=== PATIENT | male | born 1970 | race Caucasian/White ===

== ENCOUNTER 2018-12-05 15:15 | Emergency (ER) | payer OTHER ==
[~2018-12-05] VITALS: Ht 170.2 cm; Wt 124.1 kg
[~2018-12-05 15:15] MED LIST: ALBU8.5H8 INH; ATOR20TA38 PO; CIPR500T4 PO; ESOM40CA PO; METO-448 PO; METR500T PO; NICO-546 TRANSDERM
[2018-12-05 15:26] VITALS: Ht 170.2 cm; Wt 124.1 kg
[2018-12-05] MEDS ORDERED: IBUPROFEN 800 MG TAB PO ONE (17:00)
[2018-12-05] MEDS ORDERED: morphine 4 MG/ML VIAL IV STA (19:14)
[2018-12-05] MEDS ORDERED: ONDANSETRON 4 MG INJ IV STA (19:14)
[2018-12-05] MEDS ORDERED: AMPICILLIN/SULB 3 GM/NS (PMX) 100 ML IVPB ONE (19:30)
[2018-12-05] MEDS ORDERED: BUPIVACAINE 0.5%/EPI (SDV) 30 ML INJ ONE (19:45)
--- NOTE | 2018-12-05 19:48 | PREAC ---
Date/Time of Note Date/Time of Note DATE: 12/05/18 TIME: 19:47 Anesthesia Eval and Record Evaluation Time Pre-Procedure Interview DATE: 12/05/18 TIME: 19:47 Age 48 Sex male NPO: 8 hrs Preoperative diagnosis APPENDICITIS Planned procedure LAPAROSCOPIC APPENDECTOMY Past Medical History Past Medical History: Includes Cardio: Dyslipidemia GI: Morbid obesity Surgery & Anesthesia Issues No known issue Meds Anticoagulation: No Beta Arya within 24 hr: No Reason Beta Arya not given: Pt. not on B-Arya Current Medications Ampicillin Sodium/ Sulbactam Sodium 100 ml @ 100 mls/hr ONCE ONCE IVPB Last administered on 12/05/18at 19:44; Admin Dose 100 MLS/HR; Start 12/05/18 at 19:30; Stop 12/05/18 at 20:29 Meds reviewed: Yes Allergies Coded Allergies: No Known Allergy (Unverified , 12/05/18) Allergies Reviewed: Yes Labs/Studies Labs Reviewed: Reviewed by anesthesiologist Result Diagram: 12/05/18190612/05/181906 Laboratory Tests 12/05/18 19:07 test: N/A Pre-procedure Exam Last vitals Vital Signs Date Temp Pulse Resp B/P (MAP) Pulse Ox O2 O2 Flow FiO2 Time Delivery Rate 12/05/18 98.9 83 18 148/91 100 Room Air 19:24 (110) Airway: Adequate mouth opening, Adequate thyromental dist Mallampati: Mallampati II Teeth: Normal Lung: Normal Heart: Normal ASA Physical Status ASA physical status: 2 Emergency: E Planned Anesthetic General/MAC: ETT Planned Pain Management Parenteral pain med Pre-operative Attestations Prior to commencing anesthesia and surgery, the patient was re-evaluated, there was verification of: *The patient's identity *The results of appropriate recent lab work and preoperative vital signs *The above evaluation not changing prior to induction *Anesthetic plan, risk benefits, alternative and complications discussed with patient/family; questions answered; patient/family understands, accepts and wishes to proceed. MORIS ANGEL Dec 05, 2018 19:48
[2018-12-05] MEDS ORDERED: PROPOFOL 20 ML ONE (19:50)
[2018-12-05] MEDS ORDERED: LIDOCAINE 2% (SDV) 5 ML INJ ONE (19:52)
--- NOTE | 2018-12-05 21:56 | ERD ---
ER Documentation Chief Complaint Chief Complaint sent by pcp - abdominal pain/distention possible umbulical hernia HPI Patient is a 48-year-old male with high cholesterol who presents for hernia evaluation. The patient was sent by Dr. Shukla to evaluate for possible incarcerated hernia. The patient says that he has abdominal pain which is better with laying down. He feels the pain in his lower abdomen and around his umbilical area. He said the pain started yesterday. He tried ibuprofen. He did have a bowel movement today with no blood. Upon review of old medical records this is the patient's first visit to the emergency department. ROS All systems reviewed and are negative except as per history of present illness. Medications Home Meds Reported Medications Esomeprazole Mag Trihydrate (Nexium) 40 Mg Capsule.dr, 40 MG PO DAILY, #30 CAP 12/05/18 Atorvastatin Calcium* (Atorvastatin Calcium*) 20 Mg Tablet, 20 MG PO QHS, #30 TAB 12/05/18 Allergies Allergies: Coded Allergies: No Known Allergy (Unverified , 12/05/18) PMhx/Soc History of Surgery: Yes (R inguinal and L knee sx) Anesthesia Reaction: No Hx Cardiac Disorders: Yes (HDL) Hx Psychiatric Problems: No Hx Miscellaneous Medical Probl: No Hx Alcohol Use: No Hx Substance Use: No Hx Tobacco Use: No Smoking Status: Never smoker FmHx Family History: diabetes Physical Exam Vitals Vital Signs Date Temp Pulse Resp B/P (MAP) Pulse Ox O2 O2 Flow FiO2 Time Delivery Rate 12/05/18 98.9 83 18 148/91 100 Room Air 19:24 (110) 12/05/18 98.3 93 20 121/68 99 15:26 (85) Physical Exam Const: No acute distress Head: Atraumatic Eyes: Normal Conjunctiva ENT: Normal External Ears, Nose and Mouth. Neck: Full range of motion. No meningismus. Resp: Clear to auscultation bilaterally Cardio: Regular rate and rhythm, no murmurs Abd: Soft, diffuse crampy abdominal pain with small umbilical hernia which is easily reducible without signs of incarceration Skin: No petechiae or rashes Back: No midline or flank tenderness Ext: No cyanosis, or edema Neur: Awake and alert Psych: Normal Mood and Affect Result Diagram: 8/5/19 1907 8/5/19 1907 Results 24 hrs Laboratory Tests Test 12/05/18 19:07 White Blood Count 11.7 10^3/ul Red Blood Count 4.49 10^6/ul Hemoglobin 14.1 g/dl Hematocrit 41.6 % Mean Corpuscular Volume 92.7 fl Mean Corpuscular Hemoglobin 31.4 pg Mean Corpuscular Hemoglobin Concent 33.9 g/dl Red Cell Distribution Width 12.1 % Platelet Count 184 10^3/UL Mean Platelet Volume 10.1 fl Immature Granulocytes % 0.500 % Neutrophils % 61.5 % Lymphocytes % 25.9 % Monocytes % 9.6 % Eosinophils % 1.9 % Basophils % 0.6 % Nucleated Red Blood Cells % 0.0 /100WBC Immature Granulocytes # 0.060 10^3/ul Neutrophils # 7.2 10^3/ul Lymphocytes # 3.0 10^3/ul Monocytes # 1.1 10^3/ul Eosinophils # 0.2 10^3/ul Basophils # 0.1 10^3/ul Nucleated Red Blood Cells # 0.0 10^3/ul Prothrombin Time 13.3 Sec Prothrombin Time Ratio 1.0 INR International Normalized Ratio 1.00 Activated Partial Thromboplast Time 29.0 Sec Urine Color ИРИНА Urine Clarity SLIGHTLY CLOUDY Urine pH 5.0 Urine Specific [place] 1.030 Urine Ketones NEGATIVE mg/dL Urine Nitrite NEGATIVE mg/dL Urine Bilirubin 1+ mg/dL Urine Urobilinogen 1+ mg/dL Urine Leukocyte Esterase NEGATIVE Syeda/ul Urine Microscopic RBC 0 /HPF Urine Microscopic WBC 1 /HPF Urine Mucus MANY /HPF Urine Hemoglobin NEGATIVE mg/dL Urine Glucose NEGATIVE mg/dL Urine Total Protein 1+ mg/dl Sodium Level 138 mmol/L Potassium Level 3.8 mmol/L Chloride Level 104 mmol/L Carbon Dioxide Level 24 mmol/L Anion Gap 10 Blood Urea Nitrogen 18 mg/dl Creatinine 1.02 mg/dl Est Glomerular Filtrat Rate mL/min > 60 mL/min Glucose Level 99 mg/dl Calcium Level 9.0 mg/dl Total Bilirubin 0.8 mg/dl Direct Bilirubin 0.00 mg/dl Indirect Bilirubin 0.8 mg/dl Aspartate Amino Transf (AST/SGOT) 27 IU/L Alanine Aminotransferase (ALT/SGPT) 38 IU/L Alkaline Phosphatase 58 IU/L Troponin I < 0.012 ng/ml Total Protein 7.2 g/dl Albumin 4.5 g/dl Globulin 2.70 g/dl Albumin/Globulin Ratio 1.66 Lipase 100 U/L Current Medications Medications Dose Sig/Teresa Start Time Status Last (Trade) Ordered Route PRN Stop Time Admin Dose Reason Admin Ibuprofen 800 mg ONCE ONCE 12/05/18 DC 12/05/18 (Motrin) PO 17:00 12/05/18 16:52 17:01 Morphine 4 mg ONCE STAT 12/05/18 DC 12/05/18 Sulfate IV 19:14 12/05/18 19:29 (morphine) 19:16 Ondansetron 4 mg ONCE STAT 12/05/18 DC 12/05/18 HCl (Zofran IV 19:14 12/05/18 19:29 Inj) 19:16 Ampicillin 100 ml @ ONCE ONCE 12/05/18 DC 12/05/18 Sodium/ 100 mls/hr IVPB 19:30 12/05/18 19:44 Sulbactam 20:29 Sodium Bupivacaine 30 ml STK-MED 12/05/18 DC HCl/ ONCE .ROUTE 19:45 12/05/18 Epinephrine 19:46 Bitart (Marcaine 0.5%/ Epi (Sdv)) Ondansetron 4 mg BRIDGE ORDER 12/05/18 HCl (Zofran PRN IV 22:00 12/06/18 Inj) NAUSEA/VOMITI 21:59 NG 650 mg ER BRIDGE 12/05/18 Acetaminophen PRN PO 22:00 12/06/18 (Tylenol .MILD PAIN 21:59 Tab) 1-3 OR TEMP Procedures/MDM CT abdomen and pelvis shows appendicolith with surrounding inflammation but no appendix seen per radiology. Chest x-ray read by radiology. EKG read by me: Rate/Rhythm: Regular rate and rhythm at a normal rate Intervals: Normal Impression: No evidence of ischemia or arrhythmia Smoking Cessation Therapy: Pt. was lectured for greater than 3 minutes on the health risks of continued smoking and the benefits of cessation. Patient is a 48-year-old male who presents with abdominal pain. CT scan showed inflammation around the appendiceal stump as the patient said that he had a previous appendix removal when he was 10 years old. The patient has an elevated white blood cell count of 11.7. He was given Unasyn IV. I spoke with Dr. Dominguez the surgeon on-call who said there would not be a need for surgery since he had his appendix removed but he did recommend admission for IV antibiotics. I spoke to Dr. Morgan for admission to a medical surgical inpatient bed as the patient has [employer] insurance. Departure Diagnosis: Primary Impression: Appendix disease Additional Impression: Abdominal pain Abdominal location: unspecified location Qualified Codes: R10.9 - Unspecified abdominal pain Condition: PUJA Perkins MD Dec 05, 2018 21:56
[2018-12-05] MEDS ORDERED: ONDANSETRON 4 MG INJ IV PRN (22:00)
[2018-12-05] MEDS ORDERED: HYDROmorphONE 2 MG/ML SYG IV STA (22:32)
[2018-12-06] MEDS ORDERED: ONDANSETRON 4 MG INJ IV PRN (01:30)
[2018-12-06] MEDS ORDERED: morphine 4 MG/ML VIAL IV PRN (01:30)
[2018-12-06] MEDS ORDERED: ACETAMINOPHEN 325 MG TAB PO PRN (01:30)
[2018-12-06] MEDS ORDERED: SOD CHLORIDE 0.9% 1,000 ML IV SCH ×2 (01:30→02:00)
[2018-12-06] MEDS: PIPER-TAZO 3.375 GM IV (PMX) 100 ML IVPB SCH ×2 (02:13→09:30)
--- NOTE | 2018-12-06 02:39 | HP ---
DATE OF ADMISSION: 12/05/2018 CHIEF COMPLAINT: Abdominal pain. HISTORY OF PRESENT ILLNESS: The patient presents to the emergency room at [facility] with a bdominal pain which he states is worse in the periumbilical and suprapubic regions. This is not asso ciated with any nausea, vomiting, diarrhea, any fevers or chills. PAST MEDICAL HISTORY: Gastroesophageal reflux disease and hyperlipidemia. OUTPATIENT MEDICATIONS: 1. Nexium 2. Lipitor. ALLERGIES: NO KNOWN DRUG ALLERGIES. SOCIAL HISTORY: The patient lives at home in [place] with his and children. 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 Smokes a pack per day. Rare alcohol. Denies illicit drug use. FAMILY HISTORY: Noncontributory. REVIEW OF SYSTEMS: Five systems reviewed and found not to be revealing. PHYSICAL EXAMINATION: VITAL SIGNS: Blood pressure 114/74, pulse rate 66, respirations 20, temperature 98.6. GENERAL: Pleasant man in no acute distress. Alert and oriented x3. HEENT: Normocephalic, atraumatic without evident scleral icterus, perioral cyanosis. Mucous membran es are moist. NECK: Soft and supple without masses. No evidence of jugular venous distention or carotid bruits. CHEST: Clear to auscultation and percussion bilaterally. HEART: Regular rate and rhythm, S1-S2, no added sounds. ABDOMEN: Soft, tender in the periumbilical region. No palpable hepatosplenomegaly. EXTREMITIES: Without clubbing, cyanosis or edema. SKIN: Without rashes. NEUROLOGIC: Grossly intact. LABORATORY STUDIES: Reveal hemoglobin of 14.1 g/dL, white count 11,700, platelets of 184,000. INR i s 1.0. Sodium 138, potassium 3.8, chloride 104, bicarbonate 24, BUN 18, creatinine 1.02, glucose 99. Liver function tests within normal limits. UA is negative for signs of infection. IMAGING: CT scan of the abdomen and pelvis reveals a pericecal inflammatory mass surrounding any alfred endicolith with surrounding infiltration, suspicious for appendicitis; however, distinct appendix is not seen. ASSESSMENT AND PLAN: Probable repeat episode of appendicitis following appendectomy. We will plan t o treat medically at this time. Await surgical evaluation. Dictated By: MATTIE RM MD RER/NTS Conf#: [id number] [facility]#: [id number]
[2018-12-06] MEDS ORDERED: PANTOPRAZOLE (EC) 40 MG TAB PO SCH (06:00)
[2018-12-06] MEDS: ACETAMINOPHEN 325 MG TAB PO PRN ×2 (08:23→10:56)
--- NOTE | 2018-12-06 09:52 | PDOCDIS ---
Discharge Instructions CONDITION [id number] Patient Condition: [id number] Good HOME CARE INSTRUCTIONS: [id number] Diet Instructions: [id number] FOLLOW UP/APPOINTMENTS Follow-up Plan pcp 1 week LEN ESTRADA MD Dec 06, 2018 09:52
[2018-12-06 10:57] VITALS: BP 117/79; PULSE 65; RESP 18
[2018-12-06] MEDS ORDERED: IBUPROFEN 600 MG TAB PO ONE (11:00)
--- NOTE | 2018-12-06 19:11 | DS ---
DATE OF ADMISSION: 12/05/2018 DATE OF DISCHARGE: 12/06/2018 DISCHARGE DIAGNOSES: 1. A 48-year-old male with acute colitis. 2. Status post appendectomy at the age of 10. 3. Gastroesophageal reflux disease. 4. Hyperlipidemia. HOSPITAL COURSE: A 48-year-old Frisian male presented to emergency room with complaint of right low er quadrant and periumbilical as well as suprapubic tenderness to palpation. The patient denied any nausea or vomiting. No fevers or chills. No hematemesis. No bright red blood per rectum or melena. CAT scan of the abdomen and pelvis showed pericecal probable inflammatory mass surrounding appendicol ith with surrounding infiltration, most suspicious for appendicitis; however, the appendix could not be identified. The case was discussed with Dr. Dominguez. There was no need for surgical intervention. The patient remained stable during the hospitalization. He was discharged to home in a stable condi tion. I prescribed 10 days of Cipro and Flagyl. The patient will follow up with his PCP. He will a lso be referred to gastroenterology for colonoscopy following treatment of his colitis. Dictated By: LEN MEYER/YOSEF Conf#: [id number] DID#: [id number]
[2018-12-06] MEDS ORDERED: ATORVASTATIN 20 MG TAB PO SCH (21:00)
== END 2018-12-06 10:58 | disposition home or self-care (01) ==
LOC: FTE 15:15 → E/R 12-06 10:58
DX: K38.9 Disease of appendix, unspecified (principal)
CPT/HCPCS: 36415; 71045; 74176; 80053; 81001; 83690; 84484; 85025; 85610; 85730; 93005; 96374; 96375; 96376; J0295; J1170; J2270; J2405; J2543; J7030; Z7502; Z7610; J3010

== ENCOUNTER 2018-12-08 13:58 | Inpatient (IN) | payer OTHER ==
[~2018-12-08] VITALS: Ht 170.2 cm; Wt 125.0 kg
[2018-12-08] MEDS ORDERED: HYDROmorphONE 2 MG/ML SYG IV STA (14:16)
[2018-12-08] MEDS ORDERED: SODIUM CHLORIDE 0.9% 1L BAG IV* STA (14:16)
[2018-12-08] MEDS ORDERED: ONDANSETRON 4 MG INJ IV STA (14:16)
[2018-12-08] MEDS ORDERED: AMPICILLIN/SULB 3 GM/NS (PMX) 100 ML IVPB ONE (14:30)
[2018-12-08] MEDS ORDERED: ACETAMINOPHEN 325 MG TAB PO PRN (16:00)
[2018-12-08] MEDS ORDERED: ONDANSETRON 4 MG INJ IV PRN (16:00)
[2018-12-08] MEDS ORDERED: morphine 2 MG INJ IV PRN (18:00)
[2018-12-08] MEDS: DEXTROSE 5%-0.45% NACL 1,000 ML IV SCH (18:41)
--- NOTE | 2018-12-08 18:45 | ERD ---
ER Documentation Chief Complaint Chief Complaint SEEN HERE 12/05 AP NOT RESOLVED HPI Patient is a 48-year-old male with no medical problems who presents with abdominal pain. He was seen by his primary doctor in the office today who sent him to the emergency department for admission and surgery. His primary doctor spoke with Dr. Christensen who plans to operate. The patient has right lower quadrant abdominal pain and fevers. He was recently admitted for the same and had an appendiceal stump infection. He was discharged with Cipro and Flagyl which she is taking. ROS All systems reviewed and are negative except as per history of present illness. Medications Home Meds Active Scripts Metronidazole* (Flagyl*) 500 Mg Tablet, 500 MG PO Q8 for 10 Days, TAB Prov:LEN ROCHA MD 12/06/18 Ciprofloxacin Hcl* (Ciprofloxacin Hcl*) 500 Mg Tablet, 500 MG PO BID for 10 Days, #20 TAB Prov:LEN ROCHA MD 12/06/18 Reported Medications Esomeprazole Mag Trihydrate (Nexium) 40 Mg Capsule.dr, 40 MG PO DAILY, #30 CAP 12/05/18 Atorvastatin Calcium* (Atorvastatin Calcium*) 20 Mg Tablet, 20 MG PO QHS, #30 TAB 12/05/18 Allergies Allergies: Coded Allergies: No Known Allergy (Unverified , 12/08/18) PMhx/Soc History of Surgery: Yes (R inguinal and L knee sx, appy) Anesthesia Reaction: No Hx Cardiac Disorders: Yes (HDL) Hx Psychiatric Problems: No Hx Miscellaneous Medical Probl: No Hx Alcohol Use: No Hx Substance Use: No Hx Tobacco Use: No Smoking Status: Never smoker FmHx Family History: diabetes Physical Exam Vitals Vital Signs Date Temp Pulse Resp B/P (MAP) Pulse Ox O2 O2 Flow FiO2 Time Delivery Rate 12/08/18 98.0 82 18 115/75 99 14:10 (88) Physical Exam Const: No acute distress Head: Atraumatic Eyes: Normal Conjunctiva ENT: Normal External Ears, Nose and Mouth. Neck: Full range of motion. No meningismus. Resp: Clear to auscultation bilaterally Cardio: Regular rate and rhythm, no murmurs Abd: Right lower quadrant tenderness palpation with guarding Skin: No petechiae or rashes Back: No midline or flank tenderness Ext: No cyanosis, or edema Neur: Awake and alert Psych: Normal Mood and Affect Result Diagram: 12/08/18 1425 12/08/18 1425 Results 24 hrs Laboratory Tests Test 12/08/18 14:25 12/08/18 14:26 12/08/18 14:29 White Blood Count 7.7 10^3/ul Red Blood Count 4.32 10^6/ul Hemoglobin 13.6 g/dl Hematocrit 40.7 % Mean Corpuscular Volume 94.2 fl Mean Corpuscular Hemoglobin 31.5 pg Mean Corpuscular 33.4 g/dl Hemoglobin Concent Red Cell Distribution Width 12.0 % Platelet Count 191 10^3/UL Mean Platelet Volume 10.1 fl Immature Granulocytes % 0.800 % Neutrophils % 53.8 % Lymphocytes % 30.3 % Monocytes % 11.1 % Eosinophils % 3.5 % Basophils % 0.5 % Nucleated Red Blood Cells % 0.0 /100WBC Immature Granulocytes # 0.060 10^3/ul Neutrophils # 4.2 10^3/ul Lymphocytes # 2.3 10^3/ul Monocytes # 0.9 10^3/ul Eosinophils # 0.3 10^3/ul Basophils # 0.0 10^3/ul Nucleated Red Blood Cells # 0.0 10^3/ul Prothrombin Time 14.1 Sec Prothrombin Time Ratio 1.1 INR International 1.08 Normalized Ratio Activated Partial Thromboplast 30.3 Sec Time Sodium Level 139 mmol/L Potassium Level 3.9 mmol/L Chloride Level 105 mmol/L Carbon Dioxide Level 27 mmol/L Anion Gap 7 Blood Urea Nitrogen 15 mg/dl Creatinine 1.01 mg/dl Est Glomerular Filtrat > 60 mL/min Rate mL/min Glucose Level 111 mg/dl Calcium Level 9.5 mg/dl Total Bilirubin 0.7 mg/dl Direct Bilirubin 0.00 mg/dl Indirect Bilirubin 0.7 mg/dl Aspartate Amino Transf (AST/SGOT) 28 IU/L Alanine 41 IU/L Aminotransferase (ALT/SGPT) Alkaline Phosphatase 54 IU/L Troponin I < 0.012 ng/ml Total Protein 7.5 g/dl Albumin 4.4 g/dl Globulin 3.10 g/dl Albumin/Globulin Ratio 1.41 Lipase 102 U/L POC Venous Lactate 0.8 mmol/L Urine Color YELLOW Urine Clarity CLEAR Urine pH 6.0 Urine Specific [place] 1.021 Urine Ketones NEGATIVE mg/dL Urine Nitrite NEGATIVE mg/dL Urine Bilirubin NEGATIVE mg/dL Urine Urobilinogen NEGATIVE mg/dL Urine Leukocyte Esterase 1+ Syeda/ul Urine Microscopic RBC 1 /HPF Urine Microscopic WBC 0 /HPF Urine Mucus FEW /HPF Urine Hemoglobin NEGATIVE mg/dL Urine Glucose NEGATIVE mg/dL Urine Total Protein NEGATIVE mg/dl Current Medications Medications Dose Sig/Teresa Start Time Status Last (Trade) Ordered Route PRN Stop Time Admin Dose Reason Admin Sodium 2,700 ml BOLUS OVER 2 12/08/18 DC 12/08/18 Chloride HOURS STAT 14:16 12/08/18 14:40 (NS) IV* 14:18 1 mg ONCE STAT 12/08/18 DC 12/08/18 Hydromorphone IV 14:16 12/08/18 14:39 HCl 14:18 (Dilaudid) Ondansetron 4 mg ONCE STAT 12/08/18 DC 12/08/18 HCl (Zofran IV 14:16 12/08/18 14:39 Inj) 14:18 Ampicillin 100 ml @ ONCE ONCE 12/08/18 DC 12/08/18 Sodium/ 100 mls/hr IVPB 14:30 12/08/18 14:50 Sulbactam 15:29 Sodium Procedures/MDM EKG read by me: Rate/Rhythm: Regular rate and rhythm Intervals: Normal Impression: No evidence of ischemia or arrhythmia Chest x-ray read by radiology. Patient is a 48-year-old male presents with acute right lower quadrant pain with colitis from an infected appendiceal stump. I spoke with Dr. Christensen who plans to operate tomorrow. The patient has [employer] insurance and I spoke with Dr. Rocha for admission to a medical surgical bed. Preoperative studies were done and the patient was given Unasyn IV. I doubt sepsis at this time. Departure Diagnosis: Primary Impression: Colitis Additional Impression: Abdominal pain Abdominal location: right lower quadrant Qualified Codes: R10.31 - Right lower quadrant pain Condition: PUJA Perkins MD Dec 08, 2018 18:45
[2018-12-08 18:48] VITALS: Ht 170.2 cm; Wt 125.0 kg
[2018-12-08 18:54] VITALS: BP 120/72; PULSE 73; RESP 18
--- NOTE | 2018-12-08 20:39 | HP ---
DATE OF ADMISSION: 12/08/2018 CHIEF COMPLAINT: Persistent right lower abdominal pain. HISTORY OF PRESENT ILLNESS: A 48-year-old male status post appendectomy at the age of 10, returns to emergency room after he presented to his primary care physician with complaint of persistent right lo wer quadrant abdominal pain. The patient was admitted 2 days prior when he initially presented with right lower quadrant abdominal pain. At that time, case was discussed with Dr. Dominguez. He did not re commend any surgical intervention and requested treatment for colitis. The patient was discharged on Cipro and Flagyl. He continued to have right lower quadrant abdominal pain. White blood cell count was 7.7. Basic metabolic panel was within normal limits. Serum lactate was 0.8. PAST MEDICAL HISTORY: 1. Hyperlipidemia. 2. Gastroesophageal reflux disease. 3. History of tobacco use. MEDICATIONS PRIOR TO ADMISSION: 1. Cipro. 2. Flagyl. 3. Nexium. 4. Lipitor. PAST SURGICAL HISTORY: Status post appendectomy at the age of 10, status post right inguinal hernia r epair, status post left knee surgery. PHYSICAL EXAMINATION: GENERAL: Well-developed, well-nourished male who is in no apparent distress. VITAL SIGNS: Stable. He is afebrile. HEENT: Extraocular muscles are intact. Pupils are equal and reactive to light bilaterally. Sclerae are anicteric. Oropharynx is clear and moist. NECK: Supple. No JVD, no carotid bruits. LUNGS: Slight rhonchi. CARDIAC: Regular rate and rhythm. No murmurs, rubs or gallops. ABDOMEN: Soft. Right lower quadrant tenderness to palpation with mild guarding. EXTREMITIES: No clubbing, cyanosis or edema. NEUROLOGICAL: Nonfocal. ASSESSMENT: 1. A 48-year-old male with persistent right lower quadrant abdominal pain. This appears to be infec jennifer appendiceal stump. 2. Hyperlipidemia. 3. Gastroesophageal reflux disease. PLAN: 1. Admit to med/surg. IV Zosyn. N.p.o. IV fluid hydration. 2. Pain control. 3. On-call to the operating room in the morning. Dictated By: LEN MEYER/NTS Conf#: [id number] DID#: [id number] CC: TWIN TRAORE MD;*EndCC*
[2018-12-08 20:58] VITALS: BP 116/76; PULSE 66; RESP 18
[2018-12-08] MEDS: FAMOTIDINE 20 MG INJ IV SCH (21:41)
[2018-12-08] MEDS: PIPER-TAZO 3.375 GM IV (PMX) 100 ML IVPB SCH (21:41)
[2018-12-09] VITALS (22 sets, daily range): BP systolic 116–138; BP diastolic 69–80; PULSE 70–82; RESP 13–30
[2018-12-09] MEDS: morphine 4 MG/ML VIAL IV PRN ×3 (01:19→20:55)
[2018-12-09] MEDS: ALBUTEROL/IPRATROPIUM (NEB) 3 ML AMP HHN PRN ×2 (03:07→16:44)
[2018-12-09] MEDS: DEXTROSE 5%-0.45% NACL 1,000 ML IV SCH ×2 (04:26→14:00)
[2018-12-09] MEDS: PIPER-TAZO 3.375 GM IV (PMX) 100 ML IVPB SCH ×3 (05:56→22:30)
[2018-12-09] MEDS ORDERED: BUPIVACAINE 0.25%/EPI (SDV) 10 ML INJ ONE (09:18)
--- NOTE | 2018-12-09 09:57 | CONS ---
Assessment/Plan Assessment/Plan Assessment/Plan (Daily) Stump appendicitis There are pulmonary issues which preclude general anesthesia Laparoscopic appendectomy possible open has been canceled and will be rescheduled when he is cleared for the procedure. We will continue with antibiotics Consultation Date/Type/Reason Admit Date/Time Dec 08, 2018 at 15:50 Date of Consultation: Dec 09, 2018 Type of Consult General surgery Reason for Consultation Stump appendicitis Date/Time of Note DATE: 12/09/18 TIME: 09:48 Hx of Present Illness The patient is a 48-year-old heavy smoker who is 40 years status post open appendectomy in [facility]. Was hospitalized here on December 05 where he was diagnosed with stump appendicitis. Was seen on CT scan he responded to antibiotics and was discharged on Cipro and Flagyl which she has been taking. Continues to have severe right lower quadrant abdominal pain and was admitted with stump appendicitis, and surgical consultation was requested. He was scheduled for laparoscopic appendectomy possible open this morning however last night he had severe shortness of breath and currently his O2 sat is 92% on oxygen. He was evaluated by the anesthesiologist who felt that general ane sthesia would be too high risk for this patient. The surgery has therefore been canceled, and the patient will be seen in pulmonary consultation. We will proceed with surgery when the patient is cleared from medical and pulmonary standpoint. The patient is a heavy smoker. He states that if he goes for prolonged periods without smoking he gets short of breath. He feels that this is what happened to him last night. Review of systems HEENT: Unremarkable Pulmonary: As in the HPI Cardiac: No history of chest pain, NH or arrhythmia. Abdomen: As in the HPI. History of reducible umbilical hernia : Unremarkable Past Medical History Home Meds Active Scripts Metronidazole* (Flagyl*) 500 Mg Tablet, 500 MG PO Q8 for 10 Days, TAB Prov:LEN ESTRADA MD 12/06/18 Ciprofloxacin Hcl* (Ciprofloxacin Hcl*) 500 Mg Tablet, 500 MG PO BID for 10 Days, #20 TAB Prov:LEN ESTRADA MD 12/06/18 Reported Medications Esomeprazole Mag Trihydrate (Nexium) 40 Mg Capsule., 40 MG PO DAILY, #30 CAP 12/05/18 Atorvastatin Calcium* (Atorvastatin Calcium*) 20 Mg Tablet, 20 MG PO QHS, #30 TAB 12/05/18 Medications Current Medications Dextrose/Sodium Chloride 1,000 ml @ 100 mls/hr Q10H IV Last administered on 12/09/18at 04:26; Admin Dose 100 MLS/HR; Start 12/08/18 at 18:00 Piperacillin Sod/ Tazobactam Sod 100 ml @ 200 mls/hr Q8 IVPB Last administered on 12/09/18at 05:56; Admin Dose 200 MLS/HR; Start 12/08/18 at 22:00 Morphine Sulfate (morphine) 2 mg Q3H PRN IV PAIN LEVEL 4-6; Start 12/08/18 at 18:00 Morphine Sulfate (morphine) 4 mg Q3H PRN IV SEVERE PAIN LEVEL 7-10 Last admini stered on 12/09/18at 01:19; Admin Dose 4 MG; Start 12/08/18 at 18:00 Famotidine (Pepcid Iv) 20 mg BID IV Last administered on 12/08/18at 21:41; Admin Dose 20 MG; Start 12/08/18 at 21:00 Albuterol/ Ipratropium (Duoneb) 3 ml Q4H RESP THERAPY PRN HHN SHORTNESS OF BREATH Last administered on 12/09/18at 03:07; Admin Dose 3 ML; Start 12/09/18 at 03:00 Allergies: Coded Allergies: No Known Allergy (Unverified , 12/08/18) Past Surgical History Past Surgical Hx: appendectomy Family History Significant Family History: no pertinent family hx Social History Alcohol Use: occasionally Smoking Status: Heavy tobacco smoker Exam/Review of Systems Exam Vitals Vital Signs Date Temp Pulse Resp B/P (MAP) Pulse Ox O2 O2 Flow FiO2 Time Delivery Rate 12/09/18 98.2 70 18 120/74 97 07:48 (89) 12/09/18 3.0 03:09 12/09/18 21 03:08 12/09/18 Room Air 01:45 Intake and Output 12/08/18 12/08/18 12/09/18 1515:00 23:00 07:00 IntakeIntake Total 100 ml 1190 ml BalanceBalance 100 ml 1190 ml Constitutional: alert, oriented Psych: no complaints Head: normocephalic Eyes: nl conjunctiva ENMT: nl external ears & nose Neck: supple Respiratory: diminished breath sounds Cardiovascular: regular rate and rhythm Gastrointestinal: soft, tender (Slight tenderness right lower quadrant with slight guarding but no rebound) Genitourinary - Male: nl penis Musculoskeletal: nl extremities to inspection Extremities: normal pulses Neurological: QUALITY ENG II-XII intact Results Result Diagram: 12/08/18 1425 12/08/18 1425 Results 24hrs Laboratory Tests Test 12/08/18 14:25 12/08/18 14:26 12/08/18 14:29 White Blood Count 7.7 # Red Blood Count 4.32 L Hemoglobin 13.6 L Hematocrit 40.7 L Mean Corpuscular Volume 94.2 Mean Corpuscular Hemoglobin 31.5 Mean Corpuscular Hemoglobin Concent 33.4 Red Cell Distribution Width 12.0 Platelet Count 191 Mean Platelet Volume 10.1 Immature Granulocytes % 0.800 H Neutrophils % 53.8 Lymphocytes % 30.3 Monocytes % 11.1 H Eosinophils % 3.5 Basophils % 0.5 Nucleated Red Blood Cells % 0.0 Immature Granulocytes # 0.060 H Neutrophils # 4.2 Lymphocytes # 2.3 Monocytes # 0.9 Eosinophils # 0.3 Basophils # 0.0 Nucleated Red Blood Cells # 0.0 Prothrombin Time 14.1 Prothrombin Time Ratio 1.1 INR International Normalized Ratio 1.08 Activated Partial Thromboplast Time 30.3 Sodium Level 139 Potassium Level 3.9 Chloride Level 105 Carbon Dioxide Level 27 Anion Gap 7 Blood Urea Nitrogen 15 Creatinine 1.01 Est Glomerular Filtrat Rate mL/min > 60 Glucose Level 111 Calcium Level 9.5 Total Bilirubin 0.7 Direct Bilirubin 0.00 Indirect Bilirubin 0.7 Aspartate Amino Transf (AST/SGOT) 28 Alanine Aminotransferase (ALT/SGPT) 41 Alkaline Phosphatase 54 Troponin I < 0.012 Total Protein 7.5 Albumin 4.4 Globulin 3.10 Albumin/Globulin Ratio 1.41 Lipase 102 POC Venous Lactate 0.8 Urine Color YELLOW Urine Clarity CLEAR Urine pH 6.0 Urine Specific [place] 1.021 Urine Ketones NEGATIVE Urine Nitrite NEGATIVE Urine Bilirubin NEGATIVE Urine Urobilinogen NEGATIVE Urine Leukocyte Esterase 1+ H Urine Microscopic RBC 1 Urine Microscopic WBC 0 Urine Mucus FEW A Urine Hemoglobin NEGATIVE Urine Glucose NEGATIVE Urine Total Protein NEGATIVE Medications Medication Current Medications Dextrose/Sodium Chloride 1,000 ml @ 100 mls/hr Q10H IV Last administered on 12/09/18at 04:26; Admin Dose 100 MLS/HR; Start 12/08/18 at 18:00 Piperacillin Sod/ Tazobactam Sod 100 ml @ 200 mls/hr Q8 IVPB Last administered on 12/09/18at 05:56; Admin Dose 200 MLS/HR; Start 12/08/18 at 22:00 Morphine Sulfate (morphine) 2 mg Q3H PRN IV PAIN LEVEL 4-6; Start 12/08/18 at 18:00 Morphine Sulfate (morphine) 4 mg Q3H PRN IV SEVERE PAIN LEVEL 7-10 Last administered on 12/09/18at 01:19; Admin Dose 4 MG; Start 12/08/18 at 18:00 Famotidine (Pepcid Iv) 20 mg BID IV Last administered on 12/08/18at 21:41; Admin Dose 20 MG; Start 12/08/18 at 21:00 Albuterol/ Ipratropium (Duoneb) 3 ml Q4H RESP THERAPY PRN HHN SHORTNESS OF BREATH Last administered on 12/09/18at 03:07; Admin Dose 3 ML; Start 12/09/18 at 03:00 TWIN TRAORE MD Dec 09, 2018 09:57
[2018-12-09] MEDS: FAMOTIDINE 20 MG INJ IV SCH ×2 (10:35→20:55)
--- NOTE | 2018-12-09 11:09 | PN ---
Date/Time of Note Date/Time of Note DATE: 12/09/18 TIME: 11:06 Subjective Doing well. Abdominal pain well controlled. No chest pain or shortness of breath Objective Vitals Vital Signs Date Temp Pulse Resp B/P (MAP) Pulse Ox O2 O2 Flow FiO2 Time Delivery Rate 12/09/18 98.2 70 18 120/74 97 07:48 (89) 12/09/18 3.0 03:09 12/09/18 21 03:08 12/09/18 Room Air 01:45 Intake and Output 12/08/18 12/08/18 12/09/18 1515:00 23:00 07:00 IntakeIntake Total 100 ml 1190 ml BalanceBalance 100 ml 1190 ml Decreased breath sounds bilaterally. No wheezes Regular rate and rhythm no murmurs or gallops Soft, mild right lower quadrant tenderness to palpation. No rebound or guarding. Normoactive bowel sounds. No edema Nonfocal Results Result Diagram: 12/08/18 1425 12/08/18 1425 Medications Medications Current Medications Dextrose/Sodium Chloride 1,000 ml @ 100 mls/hr Q10H IV Last administered on 12/09/18at 04:26; Admin Dose 100 MLS/HR; Start 12/08/18 at 18:00 Piperacillin Sod/ Tazobactam Sod 100 ml @ 200 mls/hr Q8 IVPB Last administered on 12/09/18at 05:56; Admin Dose 200 MLS/HR; Start 12/08/18 at 22:00 Morphine Sulfate (morphine) 2 mg Q3H PRN IV PAIN LEVEL 4-6; Start 12/08/18 at 18:00 Morphine Sulfate (morphine) 4 mg Q3H PRN IV SEVERE PAIN LEVEL 7-10 Last administered on 12/09/18at 01:19; Admin Dose 4 MG; Start 12/08/18 at 18:00 Famotidine (Pepcid Iv) 20 mg BID IV Last administered on 12/09/18at 10:35; Admin Dose 20 MG; Start 12/08/18 at 21:00 Albuterol/ Ipratropium (Duoneb) 3 ml Q4H RESP THERAPY PRN HHN SHORTNESS OF BREATH Last administered on 12/09/18at 03:07; Admin Dose 3 ML; Start 12/09/18 at 03:00 Albuterol/ Ipratropium (Duoneb) 3 ml Q4H RESP THERAPY HHN ; Start 12/09/18 at 13:00 VTE Prophylaxis Risk score (from Ns)>0 risk: 2 SCD applied (from Ns): Yes Lines/Catheters IV Catheter Type: Saline Lock Wagner in Place: No Assessment/Plan Assessment/Plan 48-year-old male with right lower quadrant abdominal pain due to appendiceal stump infection. Severe COPD due to heavy smoking. Anesthesia refused to proceed GERD Hyperlipidemia Continue n.p.o. DuoNeb every 4 hours Pain control Pulmonary consultation Case was discussed with Dr. Christensen. LEN ESTRADA MD Dec 09, 2018 11:09
[2018-12-09] MEDS: ALBUTEROL/IPRATROPIUM (NEB) 3 ML AMP HHN SCH ×3 (13:00→21:30)
--- NOTE | 2018-12-09 13:50 | PREAC ---
Date/Time of Note Date/Time of Note DATE: 12/09/18 TIME: 13:48 Anesthesia Eval and Record Evaluation Time Pre-Procedure Interview DATE: 12/09/18 TIME: 13:48 Age 48 Sex male NPO: 8 hrs Preoperative diagnosis Acute Appendicitis Planned procedure Laparoscopic Appendectomy Past Medical History Past Medical History: Includes Cardio: Dyslipidemia Pulm: Smoking Hx (2 PPD for over 15 years) GI: Obesity Heme: Anemia Surgery & Anesthesia Issues No known issue Meds Anticoagulation: No Beta Arya within 24 hr: No Reason Beta Arya not given: Pt. not on B-Arya Active Scripts Metronidazole* (Flagyl*) 500 Mg Tablet, 500 MG PO Q8 for 10 Days, TAB Prov:LEN ESTRADA MD 12/06/18 Ciprofloxacin Hcl* (Ciprofloxacin Hcl*) 500 Mg Tablet, 500 MG PO BID for 10 Days, #20 TAB Prov:LEN ESTRADA MD 12/06/18 Reported Medications Esomeprazole Mag Trihydrate (Nexium) 40 Mg Capsule.dr, 40 MG PO DAILY, #30 CAP 12/05/18 Atorvastatin Calcium* (Atorvastatin Calcium*) 20 Mg Tablet, 20 MG PO QHS, #30 TAB 12/05/18 Current Medications Dextrose/Sodium Chloride 1,000 ml @ 100 mls/hr Q10H IV Last administered on 12/09/18at 04:26; Admin Dose 100 MLS/HR; Start 12/08/18 at 18:00 Piperacillin Sod/ Tazobactam Sod 100 ml @ 200 mls/hr Q8 IVPB Last administered on 12/09/18at 05:56; Admin Dose 200 MLS/HR; Start 12/08/18 at 22:00 Morphine Sulfate (morphine) 2 mg Q3H PRN IV PAIN LEVEL 4-6; Start 12/08/18 at 18:00 Morphine Sulfate (morphine) 4 mg Q3H PRN IV SEVERE PAIN LEVEL 7-10 Last administered on 12/09/18at 01:19; Admin Dose 4 MG; Start 12/08/18 at 18:00 Famotidine (Pepcid Iv) 20 mg BID IV Last administered on 12/09/18at 10:35; Admin Dose 20 MG; Start 12/08/18 at 21:00 Albuterol/ Ipratropium (Duoneb) 3 ml Q4H RESP THERAPY PRN HHN SHORTNESS OF BREATH Last administered on 12/09/18at 03:07; Admin Dose 3 ML; Start 12/09/18 at 03:00 Albuterol/ Ipratropium (Duoneb) 3 ml Q4H RESP THERAPY HHN ; Start 12/09/18 at 13 :00 Meds reviewed: Yes Allergies Coded Allergies: No Known Allergy (Unverified , 12/08/18) Allergies Reviewed: Yes Labs/Studies Labs Reviewed: Reviewed by anesthesiologist Result Diagram: 12/08/18 1425 12/08/18 1425 Laboratory Tests 12/08/18 14:25 Blood Bank Test 12/08/18 14:25 Antibody Screen NEGATIVE Blood Type O NEGATIVE test: N/A Studies: ECG (n/a), CXR (1. Minimal discoid atelectasis seen at the left lung base.otherwise no active diseases.) Pre-procedure Exam Last vitals Vital Signs Date Temp Pulse Resp B/P (MAP) Pulse Ox O2 O2 Flow FiO2 Time Delivery Rate 12/09/18 3.0 13:05 12/09/18 98.2 70 18 120/74 97 07:48 (89) 12/09/18 21 03:08 12/09/18 Room Air 01:45 Airway: Adequate mouth opening, Adequate thyromental dist Mallampati: Mallampati II Teeth: Normal Lung: Normal Heart: Normal ASA Physical Status ASA physical status: 2 Emergency: E Planned Anesthetic General/MAC: ETT Nerve block: TAP (bilateral) Planned Pain Management Single shot nerve block, Parenteral pain med Pre-operative Attestations Prior to commencing anesthesia and surgery, the patient was re-evaluated, there was verification of: *The patient's identity *The results of appropriate recent lab work and preoperative vital signs *The above evaluation not changing prior to induction *Anesthetic plan, risk benefits, alternative and complications discussed with patient/family; questions answered; patient/family understands, accepts and wishes to proceed. ROBEL DELAROSA MD Dec 09, 2018 13:50
[2018-12-09] MEDS ORDERED: PROPOFOL 20 ML ONE ×2 (13:54→15:56)
[2018-12-09] MEDS ORDERED: CEFAZOLIN 1 GM INJ ONE (13:54)
[2018-12-09] MEDS ORDERED: ROCURONIUM 50 MG INJ ONE ×2 (13:54→15:56)
[2018-12-09] MEDS ORDERED: MIDAZOLAM 1 MG/ML 2 ML INJ ONE (13:55)
[2018-12-09] MEDS ORDERED: ROPIVACAINE 0.5 % 30 ML VIAL ONE (13:55)
[2018-12-09] MEDS ORDERED: ONDANSETRON 4 MG INJ IV PRN (14:00)
[2018-12-09] MEDS ORDERED: IPRATROPIUM (NEB) 0.5 MG/2.5 ML AMP HHN PRN (14:00)
[2018-12-09] MEDS ORDERED: MEPERIDINE 25 MG INJ IV PRN (14:00)
[2018-12-09] MEDS ORDERED: HYDROmorphONE 1 MG/5 ML IV SYRINGE IV PRN ×3 (14:00)
[2018-12-09] MEDS ORDERED: FENTAnyl 50 MCG/ML VIAL IV PRN ×2 (14:00)
[2018-12-09] MEDS ORDERED: LABETALOL HCL 20MG INJ IV PRN (14:00)
[2018-12-09] MEDS ORDERED: OXYCODONE/ACETAMINOPHEN (5/325) TAB PO PRN (14:00)
[2018-12-09] MEDS ORDERED: METOCLOPRAMIDE 10 MG INJ IV PRN (14:00)
[2018-12-09] MEDS ORDERED: ALBUTEROL 0.083% (NEB) 2.5 MG/3 ML AMP HHN PRN (14:00)
[2018-12-09] MEDS ORDERED: DIPHENHYDRAMINE 50 MG INJ IV PRN (14:00)
[2018-12-09] MEDS ORDERED: EPHEDrine 25 MG/5 ML SYG IV PRN (14:00)
[2018-12-09] MEDS ORDERED: BUPIVACAINE 0.5%/EPI (SDV) 30 ML INJ ONE ×2 (14:04→16:10)
[2018-12-09] MEDS ORDERED: DEXAMETHASONE 4 MG/ML 5 ML INJ ONE (14:50)
[2018-12-09] MEDS ORDERED: METOCLOPRAMIDE 10 MG INJ ONE (14:50)
[2018-12-09] MEDS ORDERED: ONDANSETRON 4 MG INJ ONE (14:50)
[2018-12-09] MEDS ORDERED: KETOROLAC 30 MG INJ ONE (15:55)
[2018-12-09] MEDS ORDERED: SUGAMMADEX SODIUM 200 MG/2 ML VIAL IV ONE (15:55)
[2018-12-09] MEDS ORDERED: metroNIDAZOLE 500 MG/NS (PMX) 100 ML IVPB ONE (15:56)
[2018-12-09] MEDS ORDERED: BUPIVACAINE 0.25% (MPF) 30 ML INJ ONE (16:09)
[2018-12-09] MEDS ORDERED: LABETALOL HCL 20MG INJ ONE (16:11)
--- NOTE | 2018-12-09 16:26 | OPR ---
Date/Time of Note Date/Time of Note DATE: 12/09/18 TIME: 16:20 Operative Report Procedure Date: Dec 09, 2018 Preoperative Diagnosis 1. Stump appendicitis 2. Umbilical hernia without obstruction Postoperative Diagnosis 1. Stump appendicitis 2. Umbilical hernia without obstruction Operation/Procedure Performed 1. Laparoscopic appendectomy 2. Repair umbilical hernia 3. Placement of drain Surgeon Twin Traore MD Video Clerk None Anesthesia Type: general Anesthesiologist: ROBEL DELAROSA MD Estimated Blood Loss: minimal Transfusion none Specimen 1. Appendiceal stump 2. Umbilical hernia sac Grafts/Implants none Tubes/Drains #19 Round Reyes drain Complications none Pt Condition Post Procedure: stable Disposition: PACU Indications Right lower quadrant peritonitis Procedure Description After satisfactory general endotracheal anesthesia was achieved, the left circumumbilical incision was made and carried down to the subcutaneous tissues. The hernia sac was dissected from the umbilical skin. The sac was excised at the fascial defect with electrocautery dissection and submitted as such. Next a 12 mm trocar was inserted into this 10 mm fascial defect, and the abdomen was insufflated with carbon dioxide to 15 mmHg pressure. A 5 mm 0 degree lens was placed. Laparoscopy showed dense adhesions from the cecum to the right abdomen and this included omental adhesions as well. Under direct visualization a 5 mm suprapubic trocar was placed as well as a 12 mm right upper quadrant trocar. The omental adhesions were taken off the cecum using blunt and electrocautery dissection. The cecum was mobilized from the right lateral abdominal wall with electrocautery dissection. There was a moderate amount of inflammation at the base of the cecum. This area was dissected with blunt and electrocautery dissection and revealed an appendiceal stump. The stump was dissected back to the cecum. It measured approximately 2 cm. It was divided with 2 passages of the laparoscopic linear stapler. The appendiceal stump was thus excised and submitted as such after being placed into an Endo Catch. Hemostasis of the staple lines was total and irrigant returned relatively clear. Because of moderate amount of dissection was elected to place a drain. A #19 round Reyes drain was placed and exited through the suprapubic port site where it was secured to skin with 2-0 nylon. It drained the right paracolic gutter and right pelvis. The abdomen was then desufflated and the trochars were removed. The fascia of the umbilicus was closed with 3 interrupted sutures of #2 Vicryl en olga. The puncture sites were infiltrated with 30 cc of 0.25% Marcaine with epinephrine and closed with alexi. Sponge and needle counts were reported as correct x2. TWIN TRAORE MD Dec 09, 2018 16:26
--- NOTE | 2018-12-09 16:35 | PAC ---
Date/Time of Note Date/Time of Note DATE: 12/09/18 TIME: 16:34 Post-Anesthesia Notes Post-Anesthesia Note Last documented vital signs Vital Signs Date Temp Pulse Resp B/P (MAP) Pulse Ox O2 O2 Flow FiO2 Time Delivery Rate 12/09/18 99.0 79 18 137/78 98 face mask 3.0 16:35 (103) 12/09/18 98.2 70 18 120/74 97 07:48 (89) 12/09/18 21 03:08 12/09/18 Room Air 01:45 Activity: WNL Respiratory function: WNL Cardiovascular function: WNL Mental status: Baseline Pain reasonably controlled: Yes Hydration appropriate: Yes Nausea/Vomiting absent: Yes ROBEL DELAROSA MD Dec 09, 2018 16:35
[2018-12-09] MEDS ORDERED: ACETAMINOPHEN 1000MG/100ML IV 100 ML IVPB ONE (17:00)
--- NOTE | 2018-12-09 17:14 | CONS ---
DATE OF ADMISSION: 12/08/2018 DATE OF CONSULTATION: TYPE OF CONSULTATION: Pulmonary. REASON FOR CONSULTATION: Shortness of breath. Thank you, Dr. Rocha, for this consultation. 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 The patient was evaluated by general surgery and is scheduled for surgery today; however ove rnight had shortness of breath and hypoxemia, now requiring supplemental O2. This morning, the patie nt remains awake, alert, oriented, denying shortness of breath. He states he has been smoking approx imately 2 packs per day for 30 plus years. Denies any hemoptysis, hematemesis. No recent travel his tory. PAST MEDICAL HISTORY: Tobacco use, hypertension, hyperlipidemia. MEDICATIONS: Per chart. ALLERGIES: NONE. PAST SURGICAL HISTORY: He had an appendectomy at age 10, inguinal hernia repair. 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 REVIEW OF SYSTEMS: Denies any significant exertional dyspnea. No need for maintenance inhalers at h ome. PHYSICAL EXAMINATION: GENERAL: Morbidly obese gentleman, awake, alert, oriented, talking in full and complete sentences. VITAL SIGNS: Currently afebrile, pulse is 70, blood pressure 120/74, O2 saturation 97% on 3 liters. NECK: Supple. No JVD above or lymphadenopathy. CARDIAC: S1, S2. No added sounds or murmurs. CHEST: Diminished air entry bilaterally. ABDOMEN: Soft, nontender. No guarding or rebound. EXTREMITIES: No cyanosis, clubbing or edema. NEUROLOGIC: Grossly intact. No focal deficits. LABORATORY DATA: White count 7.7, hemoglobin 13.6, platelets of 191. BUN 15, creatinine 1.01. INR 1.08. IMPRESSION AND PLAN: 1. Acute abdomen, possibly secondary to infected appendiceal stump. 2. Dyspnea with hypoxia, possibly secondary to chronic obstructive pulmonary disease exacerbation. Differential does include pulmonary embolus. PLAN: 1. Bronchodilator treatment. 2. Short steroid taper. 3. CT angiogram, rule out pulmonary embolus. 4. I advised smoking cessation. 5. Hopefully, the patient should be stable for surgery within the next 24 hours. Dictated By: SERENA CANDELARIO/YOSEF Conf#: [id number] [facility]#: [id number] CC: LEN ROCHA MD;*End*
[2018-12-09] MEDS: METHYLPREDNISOLONE 40 MG INJ IV SCH ×2 (18:07→22:30)
[2018-12-09] MEDS ORDERED: IOHEXOL 100 ML ONE (21:23)
[2018-12-09] MEDS ORDERED: SOD CHLORIDE 0.9% 100 ML ONE (21:23)
[2018-12-09] MEDS ORDERED: HYDROCODONE/APAP (5/325) TAB PO PRN ×2 (23:00)
[2018-12-10] MEDS: DEXTROSE 5%-0.45% NACL 1,000 ML IV SCH ×2 (00:23→10:00)
[2018-12-10] MEDS: morphine 4 MG/ML VIAL IV PRN ×2 (00:23→07:34)
[2018-12-10] MEDS: ALBUTEROL/IPRATROPIUM (NEB) 3 ML AMP HHN SCH ×6 (00:32→20:40)
[2018-12-10 02:07] VITALS: BP 107/63; PULSE 80; RESP 18
[2018-12-10] MEDS: METHYLPREDNISOLONE 40 MG INJ IV SCH ×2 (05:36→21:10)
[2018-12-10] MEDS: PIPER-TAZO 3.375 GM IV (PMX) 100 ML IVPB SCH ×3 (05:36→22:04)
[2018-12-10 07:51] VITALS: BP 118/66; PULSE 87; RESP 19
--- NOTE | 2018-12-10 08:48 | QN ---
Documentation Comment Postoperative day #1 Symptomatically improved Abdominal examination is benign Laparoscopic puncture sites are clean 5 cc seroma aspirated from the umbilicus WBC 12,700 Plan: WING drain removed Cleared for discharge home today with p.o. antibiotics and pain medication TWIN TRAORE MD Dec 10, 2018 08:48
[2018-12-10] MEDS: FAMOTIDINE 20 MG INJ IV SCH ×2 (09:00→21:10)
--- NOTE | 2018-12-10 09:55 | CONS ---
Consult Date/Type/Reason Admit Date/Time Dec 08, 2018 at 15:50 Initial Consult Date 12/09/18 Type of Consult Pulmonary Date/Time of Note DATE: 12/10/18 TIME: 09:53 Subjective Status post laparoscopic appendectomy yesterday. Patient stable overnight with mild hypoxemia. Now on 6 L O2 secondary to increasing abdominal distention. Ambulating this morning with improved oxygenation. Objective Vital Signs Date Temp Pulse Resp B/P (MAP) Pulse Ox O2 O2 Flow FiO2 Time Delivery Rate 12/10/18 98.3 87 19 118/66 92 07:51 (83) 12/10/18 Nasal 4.0 04:53 Cannula 12/09/18 21 16:45 Intake and Output 12/09/18 12/09/18 12/10/18 1515:00 23:00 07:00 IntakeIntake Total 500 ml 2620 ml 1060 ml OutputOutput Total 140 ml 20 ml BalanceBalance 500 ml 2480 ml 1040 ml Exam PHYSICAL EXAMINATION: GENERAL: Morbidly obese gentleman, awake, alert, oriented, talking in full and complete sentences. VITAL SIGNS: NECK: Supple. No JVD above or lymphadenopathy. CARDIAC: S1, S2. No added sounds or murmurs. CHEST: Diminished air entry bilaterally. ABDOMEN: Soft, nontender. No guarding or rebound. EXTREMITIES: No cyanosis, clubbing or edema. NEUROLOGIC: Grossly intact. No focal deficits. Vent Setting Fraction of Inspired Oxygen pe: 21 Results/Medications Result Diagram: 12/10/18 0747 12/08/18 1425 Results 24 hrs Laboratory Tests Test 12/10/18 07:47 White Blood Count 12.7 #H Red Blood Count 4.15 L Hemoglobin 12.9 L Hematocrit 39.1 L Mean Corpuscular Volume 94.2 Mean Corpuscular Hemoglobin 31.1 Mean Corpuscular Hemoglobin Concent 33.0 Red Cell Distribution Width 12.1 Platelet Count 220 Mean Platelet Volume 10.1 Immature Granulocytes % 0.900 H Neutrophils % 86.9 H Lymphocytes % 7.3 L Monocytes % 4.8 Eosinophils % 0.0 Basophils % 0.1 Nucleated Red Blood Cells % 0.0 Immature Granulocytes # 0.120 H Neutrophils # 11.1 H Lymphocytes # 0.9 Monocytes # 0.6 Eosinophils # 0.0 Basophils # 0.0 Nucleated Red Blood Cells # 0.0 Medications Current Medications Dextrose/Sodium Chloride 1,000 ml @ 100 mls/hr Q10H IV Last administered on 12/10/18at 00:23; Admin Dose 100 MLS/HR; Start 12/08/18 at 18:00 Piperacillin Sod/ Tazobactam Sod 100 ml @ 200 mls/hr Q8 IVPB Last administered on 12/10/18at 05:36; Admin Dose 200 MLS/HR; Start 12/08/18 at 22:00 Morphine Sulfate (morphine) 2 mg Q3H PRN IV PAIN LEVEL 4-6; Start 12/08/18 at 18:00 Morphine Sulfate (morphine) 4 mg Q3H PRN IV SEVERE PAIN LEVEL 7-10 Last administered on 12/10/18at 07:34; Admin Dose 4 MG; Start 12/08/18 at 18:00 Famotidine (Pepcid Iv) 20 mg BID IV Last administered on 12/10/18at 09:00; Admin Dose 20 MG; Start 12/08/18 at 21:00 Albuterol/ Ipratropium (Duoneb) 3 ml Q4H RESP THERAPY PRN HHN SHORTNESS OF BREATH Last administered on 12/09/18at 16:44; Admin Dose 3 ML; Start 12/09/18 at 03:00 Albuterol/ Ipratropium (Duoneb) 3 ml Q4H RESP THERAPY HHN Last administered on 12/10/18at 08:22; Admin Dose 3 ML; Start 12/09/18 at 13:00 Acetaminophen/ Hydrocodone Bitart ([place] (5/325)) 1 tab Q4H PRN PO MODERATE PAIN LEVEL 4-6; Start 12/09/18 at 23:00 Acetaminophen/ Hydrocodone Bitart ([place] (5/325)) 2 tab Q4H PRN PO MODERATE PAIN LEVEL 7-10 Last administered on 12/09/18at 23:05; Admin Dose 2 TAB; Start 12/09/18 at 23:00 Nicotine (Nicoderm 21 Mg/ 24hr) 1 patch DAILY TRANSDERM ; Start 12/10/18 at 10:00; Status UNV Docusate Sodium (Colace) 100 mg BID PO ; Start 12/10/18 at 10:00; Status UNV Methylprednisolone Sodium Succinate (Solu-Medrol) 40 mg Q12 IV ; Start 12/10/18 at 21:00; Status UNV Assessment/Plan Hospital Course (Demo Recall) IMPRESSION 1. Acute abdomen, possibly secondary to infected appendiceal stump. Status post lap scopic appendectomy 2. Dyspnea with hypoxia, possibly secondary to chronic obstructive pulmonary disease exacerbation. No evidence of pulmonary embolism on CT angiogram bibasilar atelectasis noted. PLAN: 1. Bronchodilator treatment. Incentive spirometry postoperatively 2. Short steroid taper. We will decrease steroid dose today. 3. Out of bed. 4. I advised smoking cessation. Initiate nicotine patch today. 5. Stool softeners 6. Postop wound care and surgical drain. Continue antibiotics per surgical recommendations SERENA REID MD, [facility] Dec 10, 2018 09:55
--- NOTE | 2018-12-10 11:39 | PDOCDIS ---
Discharge Instructions CONDITION [id number] Patient Condition: [id number] Good HOME CARE INSTRUCTIONS: [id number] Diet Instructions: [id number] y Avoid heavy lifting FOLLOW UP/APPOINTMENTS Follow-up Plan pcp [address] Christensen 1 week LEN ESTRADA MD Dec 10, 2018 11:39
[2018-12-10] MEDS ORDERED: FUROSEMIDE 20 MG INJ IV ONE (12:30)
[2018-12-10] MEDS: DOCUSATE SODIUM 100 MG CAP PO SCH ×2 (13:26→21:10)
[2018-12-10] MEDS: NICOTINE (21 MG/24 HR) PATCH TRANSDERM SCH (13:27)
[2018-12-10 13:44] VITALS: BP 111/66; PULSE 95; RESP 17
--- NOTE | 2018-12-10 14:05 | DS ---
DATE OF ADMISSION: 12/08/2018 DATE OF DISCHARGE: 12/10/2018 HOSPITAL COURSE: 1. This is a 48-year-old male with appendiceal stump infection. 2. Status post laparoscopic stump appendectomy. 3. Status post umbilical hernia repair. 4. Severe chronic obstructive pulmonary disease. 5. Hyperlipidemia. 6. Gastroesophageal reflux disease. A 48-year-old male with a history of very heavy tobacco use, presented to Emergency Room with complai nt of persistent right lower quadrant abdominal pain. The case was discussed with Dr. Traore. [facility] had appendectomy at the age of 10, he was diagnosed with appendiceal stump infection. The patient has severe COPD due to heavy smoking. He was seen in consultation by Dr. Quinones and und erwent preoperative clearance. He then underwent appendiceal stump laparoscopic resection as well to call hernia repair. I had a long discussion with him regarding smoking cessation. The patient is i n a stable condition for discharge. I prescribed [place] for pain control as well. DISPOSITION: Home oxygen. The patient will follow up with PCP and Dr. Traore. Dictated By: LEN MEYER/YOSEF Conf#: [id number] DID#: [id number] CC: SERENA QUINONES MD; TWIN TRAORE MD;*End*
[2018-12-10 15:26] VITALS: BP 107/55; PULSE 71; RESP 19
[2018-12-10 19:41] VITALS: BP 115/73; PULSE 96; RESP 20
[2018-12-11] MEDS: ALBUTEROL/IPRATROPIUM (NEB) 3 ML AMP HHN SCH ×4 (01:08→12:50)
[2018-12-11 02:50] VITALS: BP 119/71; PULSE 84; RESP 17
[2018-12-11] MEDS: PIPER-TAZO 3.375 GM IV (PMX) 100 ML IVPB SCH (05:46)
[2018-12-11 07:43] VITALS: BP 111/58; PULSE 84; RESP 20
--- NOTE | 2018-12-11 08:56 | QN ---
Documentation Comment Postoperative day #2 CBC slightly elevated at 13 K. The patient however feels no pain in his abdominal examination is benign Plan: Discharge today. Office follow-up 1 week TWIN TRAORE MD Dec 11, 2018 08:56
[2018-12-11] MEDS: DOCUSATE SODIUM 100 MG CAP PO SCH (09:35)
[2018-12-11] MEDS: FAMOTIDINE 20 MG INJ IV SCH (09:35)
[2018-12-11] MEDS: METHYLPREDNISOLONE 40 MG INJ IV SCH (09:35)
[2018-12-11] MEDS: NICOTINE (21 MG/24 HR) PATCH TRANSDERM SCH (09:36)
--- NOTE | 2018-12-11 11:55 | CONS ---
Consult Date/Type/Reason Admit Date/Time Dec 08, 2018 at 15:50 Initial Consult Date 12/09/18 Type of Consult Pulmonary Date/Time of Note DATE: 12/11/18 TIME: 11:54 Subjective Continues to improve now off nasal cannula O2 mild abdominal discomfort. Objective Vital Signs Date Temp Pulse Resp B/P (MAP) Pulse Ox O2 O2 Flow FiO2 Time Delivery Rate 12/11/18 93 21 09:18 12/11/18 87 18 09:18 12/11/18 98.0 111/58 07:43 (75) 12/11/18 Nasal 2.0 07:42 Cannula Intake and Output 12/10/18 12/10/18 12/11/18 1515:00 23:00 07:00 IntakeIntake Total 1550 ml 200 ml OutputOutput Total 20 ml BalanceBalance 1530 ml 200 ml Exam PHYSICAL EXAMINATION: GENERAL: Morbidly obese gentleman, awake, alert, oriented, talking in full and complete sentences. VITAL SIGNS: NECK: Supple. No JVD above or lymphadenopathy. CARDIAC: S1, S2. No added sounds or murmurs. CHEST: Diminished air entry bilaterally. ABDOMEN: Soft, nontender. No guarding or rebound. EXTREMITIES: No cyanosis, clubbing or edema. NEUROLOGIC: Grossly intact. No focal deficits. Vent Setting Fraction of Inspired Oxygen pe: 21 Results/Medications Result Diagram: 12/11/18 0453 12/11/18 0453 Results 24 hrs Laboratory Tests Test 12/11/18 04:53 White Blood Count 13.7 H Red Blood Count 4.00 L Hemoglobin 12.4 L Hematocrit 38.4 L Mean Corpuscular Volume 96.0 Mean Corpuscular Hemoglobin 31.0 Mean Corpuscular Hemoglobin Concent 32.3 Red Cell Distribution Width 12.3 Platelet Count 242 Mean Platelet Volume 10.4 Immature Granulocytes % 0.900 H Neutrophils % 79.4 H Lymphocytes % 12.5 L Monocytes % 7.0 Eosinophils % 0.0 Basophils % 0.2 Nucleated Red Blood Cells % 0.0 Immature Granulocytes # 0.130 H Neutrophils # 10.9 H Lymphocytes # 1.7 Monocytes # 1.0 H Eosinophils # 0.0 Basophils # 0.0 Nucleated Red Blood Cells # 0.0 Sodium Level 137 Potassium Level 4.8 Chloride Level 103 Carbon Dioxide Level 28 Anion Gap 6 Blood Urea Nitrogen 16 Creatinine 1.02 Est Glomerular Filtrat Rate mL/min > 60 Glucose Level 243 H Calcium Level 9.2 Phosphorus Level 3.7 Magnesium Level 2.2 Medications Current Medications Piperacillin Sod/ Tazobactam Sod 100 ml @ 200 mls/hr Q8 IVPB Last administered on 12/11/18 05:46; Admin Dose 200 MLS/HR; Start 12/08/18 at 22:00 Morphine Sulfate (morphine) 2 mg Q3H PRN IV PAIN LEVEL 4-6; Start 12/08/18 at 18:00 Morphine Sulfate (morphine) 4 mg Q3H PRN IV SEVERE PAIN LEVEL 7-10 Last administered on 12/10/18 07:34; Admin Dose 4 MG; Start 12/08/18 at 18:00 Famotidine (Pepcid Iv) 20 mg BID IV Last administered on 12/11/18 09:35; Admin Dose 20 MG; Start 12/08/18 at 21:00 Albuterol/ Ipratropium (Duoneb) 3 ml Q4H RESP THERAPY PRN HHN SHORTNESS OF BREATH Last administered on 12/09/18at 16:44; Admin Dose 3 ML; Start 12/09/18 at 03:00 Albuterol/ Ipratropium (Duoneb) 3 ml Q4H RESP THERAPY HHN Last administered on 12/11/18 09:18; Admin Dose 3 ML; Start 12/09/18 at 13:00 Acetaminophen/ Hydrocodone Bitart ([place] (5/325)) 1 tab Q4H PRN PO MODERATE PAIN LEVEL 4-6; Start 12/09/18 at 23:00 Acetaminophen/ Hydrocodone Bitart ([place] (5/325)) 2 tab Q4H PRN PO MODERATE PAIN LEVEL 7-10 Last administered on 12/09/18 23:05; Admin Dose 2 TAB; Start 12/09/18 at 23:00 Nicotine (Nicoderm 21 Mg/ 24hr) 1 patch DAILY TRANSDERM Last administered on 12/11/18 09:36; Admin Dose 1 PATCH; Start 12/10/18 at 10:00 Docusate Sodium (Colace) 100 mg BID PO Last administered on 12/11/18 09:35; Admin Dose 100 MG; Start 12/10/18 at 10:00 Methylprednisolone Sodium Succinate (Solu-Medrol) 40 mg Q12 IV Last administered on 12/11/18at 09:35; Admin Dose 40 MG; Start 12/10/18 at 21:00 Assessment/Plan Hospital Course (Demo Recall) IMPRESSION 1. Acute abdomen, possibly secondary to infected appendiceal stump. Status post lap scopic appendectomy 2. Dyspnea with hypoxia, possibly secondary to chronic obstructive pulmonary disease exacerbation. No evidence of pulmonary embolism on CT angiogram bibasilar atelectasis noted. Now resolved. PLAN: 1. Bronchodilator treatment. Incentive spirometry postoperatively 2. Consider p.o. steroid taper for home. 3. Incentive spirometry. 4. I advised smoking cessation. I provided a nicotine patch and Symbicort inhaler DC planning okay from pulmonary standpoint SERENA REID MD, [facility] Dec 11, 2018 11:55
[2018-12-11 14:23] VITALS: BP 134/79; PULSE 85; RESP 16
== END 2018-12-11 14:37 | disposition home or self-care (01) | DRG 856 ==
LOC: E/R 13:58 → 2NE 15:50
PROVIDERS: ADMIT Internal Medicine; ATTEND Internal Medicine
PROC: 0WQF4ZZ Repair Abdominal Wall, Percutaneous Endoscopic Approach (ICD-10-PCS; 2018-12-09)
PROC: 0DTJ4ZZ Resection of Appendix, Percutaneous Endoscopic Approach (ICD-10-PCS; principal; 2018-12-09 10:00)
DX: T81.40XA Infection following a procedure, unspecified, initial encounter (principal); K35.33 Acute appendicitis with perforation, localized peritonitis, and gangrene, with abscess; J44.1 Chronic obstructive pulmonary disease with (acute) exacerbation; K36 Other appendicitis; K42.9 Umbilical hernia without obstruction or gangrene; R10.31 Right lower quadrant pain; K21.9 Gastro-esophageal reflux disease without esophagitis; E78.5 Hyperlipidemia, unspecified; F17.200 Nicotine dependence, unspecified, uncomplicated; R09.02 Hypoxemia; B99.8 Other infectious disease; Y84.8 Other medical procedures as the cause of abnormal reaction of the patient, or of later complication, without mention of misadventure at the time of the procedure; Y92.019 Unspecified place in single-family (private) house as the place of occurrence of the external cause
CPT/HCPCS: 36600; 71045; 71275; 80048; 80053; 81001; 82803; 83605; 83690; 83735; 84100; 84484; 85025; 85610; 85730; 86850; 86900; 86901; 87086; 88302; 88304; 93005; 94640; 94664; 96374; 96375; J0131; J0295; J0690; J1100; J1170; J1885; J1940; J2250; J2270; J2405; J2543; J2765; J2795; J2920; J3010; J7030; J7042; Q9967

== ENCOUNTER 2018-12-19 23:36 | Emergency (ER) | payer OTHER ==
[~2018-12-19] VITALS: Ht 180.3 cm; Wt 110.0 kg
[~2018-12-19 23:36] MED LIST changes: -CIPR500T4 PO; -METR500T PO
[2018-12-19 23:42] VITALS: Ht 180.3 cm; Wt 110.0 kg
[2018-12-20] MEDS ORDERED: SOD CHLORIDE 0.9% 1,000 ML IV STA (00:41)
[2018-12-20] MEDS ORDERED: METOPROLOL 5 MG INJ IV ONE (01:00)
[2018-12-20 04:14] VITALS: BP 122/78; PULSE 82; RESP 16
== END 2018-12-20 05:13 | disposition home or self-care (01) ==
LOC: E/R 23:36
DX: R00.2 Palpitations (principal)
CPT/HCPCS: 36415; 71045; 80053; 83880; 84484; 85025; 93005; 96374; J7030; Z7502; Z7610